=== PATIENT | female | born 1935 | race Asian ===

== ENCOUNTER 2022-02-13 22:06 | Inpatient (IN) | payer OTHER ==
[~2022-02-13] VITALS: Ht 167.6 cm; Wt 72.3 kg
[2022-02-13 22:10] VITALS: BP 127/53; TEMP 99.3
[2022-02-13 22:23] VITALS: BP 127/53
[2022-02-13 23:06] LABS: POTASSIUM 2.6 mmol/L (3.6-5.2)
[2022-02-13 23:11] VITALS: BP 114/53
[2022-02-13 23:30] VITALS: BP 122/53
[2022-02-13 23:46] LABS: PLATELET COUNT 172 K/uL (152-353)
[2022-02-14] VITALS (7 sets, daily range): BP systolic 117–163; BP diastolic 44–90; TEMP 98–99; Ht 167.6 cm; Wt 72.3 kg
[2022-02-14 05:02] LABS: POTASSIUM 2.9 mmol/L (3.6-5.2)
[2022-02-14 05:14] LABS: PLATELET COUNT 151 K/uL (152-353)
[2022-02-15] VITALS (10 sets, daily range): BP systolic 114–168; BP diastolic 49–61; TEMP 97.5–98.5
[2022-02-15 04:49] LABS: POTASSIUM 2.7 mmol/L (3.6-5.2)
[2022-02-15 05:01] LABS: PLATELET COUNT 169 K/uL (152-353)
[2022-02-16] VITALS: BP 126/55; TEMP 97.9
[2022-02-16 04:00] VITALS: BP 116/46; TEMP 98.2
[2022-02-16 04:38] LABS: PLATELET COUNT 197 K/uL (152-353)
[2022-02-16 04:51] LABS: POTASSIUM 3.6 mmol/L (3.6-5.2)
[2022-02-16] MEDS ORDERED: AMLODIPINE BESYLATE PO (06:08)
[2022-02-16] MEDS ORDERED: CITALOPRAM20 MG PO (06:09)
[2022-02-16] MEDS ORDERED: COZAAR100 MG PO (06:09)
[2022-02-16] MEDS ORDERED: HYDR25TA60 PO (06:09)
[2022-02-16] MEDS ORDERED: [UNRECOGNIZED DRUG - OTHER] PO (06:12)
[2022-02-16 07:39] VITALS: BP 125/53; TEMP 97.5
[2022-02-16 11:49] VITALS: BP 148/67; TEMP 97.4
[2022-02-16] MEDS ORDERED: FOLI1TAB26 PO (13:22)
[2022-02-16] MEDS ORDERED: FERROUS SULF325 M1 PO (13:23)
[2022-02-16] MEDS ORDERED: MAGNESIUM400 M2 PO (13:31)
[2022-02-16] MEDS ORDERED: DOCU100C10 PO (13:32)
[2022-02-16] MEDS ORDERED: AZIT250T3 PO (13:33)
== END 2022-02-16 14:58 | disposition home or self-care (01) | DRG 194 ==
LOC: ED 22:06 → MED/SURG 23:55
PROVIDERS: ADMIT Emergency Medicine Emergency Medical Services; ATTEND Internal Medicine
DX: J18.8 Other pneumonia, unspecified organism (principal); E87.1 Hypo-osmolality and hyponatremia; E46 Unspecified protein-calorie malnutrition; E83.42 Hypomagnesemia; E87.6 Hypokalemia; R53.1 Weakness; R63.0 Anorexia; R62.7 Adult failure to thrive; I10 Essential (primary) hypertension; D52.8 Other folate deficiency anemias; D50.8 Other iron deficiency anemias
CPT/HCPCS: 36415; 80048; 80053; 82607; 82728; 82746; 83540; 83605; 83735; 84484; 85007; 85027; 86850; 86900; 86901; 86922; 87040; 87502; 87635; 93005; 94664; 94760; 96360; 96365; 96366; 99284; J0456; J0696; J2405; J2916; J3475; P9016; U0003

== ENCOUNTER 2022-09-16 12:43 | Emergency (ER) | payer OTHER ==
[~2022-09-16] VITALS: Ht 167.6 cm; Wt 63.5 kg
[~2022-09-16 12:43] MED LIST: AMLODIPINE BESYLATE PO; AZIT250T3 PO; CITALOPRAM20 MG PO; COZAAR100 MG PO; DOCU100C10 PO; FERROUS SULF325 M1 PO; FOLI1TAB26 PO; HYDR25TA60 PO; MAGNESIUM400 M2 PO; [UNRECOGNIZED DRUG - OTHER] PO
[2022-09-16 12:54] VITALS: BP 147/58; TEMP 98.2
== END 2022-09-16 14:23 | disposition home or self-care (01) ==
LOC: ED 12:43
DX: J44.1 Chronic obstructive pulmonary disease with (acute) exacerbation (principal); Z20.822 Contact with and (suspected) exposure to COVID-19
CPT/HCPCS: 87502; 87635; 94664; 99283; U0001